=== PATIENT | male | born 1990 | race Caucasian/White ===

== ENCOUNTER 2017-05-12 23:57 | Emergency (ER) | payer BC, OTHER ==
[~2017-05-12] VITALS: Ht 177.8 cm; Wt 61.3 kg
[~2017-05-12 23:57] MED LIST: CEPH500C PO; MEDLIST
[2017-05-13 00:02] VITALS: TEMP 37.2; Ht 177.8 cm; Wt 61.3 kg
[2017-05-13 00:40] VITALS: BP 122/67; PULSE 82; O2SAT 97
--- NOTE | 2017-05-13 00:53 | EMERGENCY ROOM VISIT NOTE ---
ED Visit Note First contact with patient: 00:01 CHIEF COMPLAINT: Foot pain HISTORY OF PRESENT ILLNESS: This 27-year-old patient presents to the emergency department with mother complaining of swelling and pain in the left foot at rest and worse with weight bearing. The patient accidentally hit it on the door. The patient rates the pain as having and 5/10. The patient has taken nothing for relief of the pain. The patient is able to walk. No numbness or weakness. No ankle pain. There are no lacerations of the foot. The patient is able to move all of their toes and their ankle without pain. +previous fracture to this foot. Patient follows at the [facility] orthopedics REVIEW OF SYSTEMS: GENERAL: A 6 system review of systems was completed with positives and pertinent negatives in the HPI. ALLERGIES: None MEDICATIONS: None PMH: Orthopedic injuries SOCIAL HISTORY: no drug use PHYSICAL EXAM: Vital Signs: Reviewed Nurse's notes, vital signs stable. GENERAL : Pleasant male, in no acute distress, but appears in pain, well-developed, well -nourished. MUSCULOSKELATAL: There is no visual deformity of the left foot. There is no erythema no ecchymosis. There is no warmth. There is tenderness and swelling over the medial aspect of the left foot. There is no tenderness over the lateral or medial malleolus. No tenderness of the tib/fib. The range of motion of the foot is no limited secondary to pain. There is no tenderness over the plantar fascia. The skin is intact and there are no lacerations or puncture wounds. Dorsalis pedis pulse 2+. Capillary refill less than 2 seconds. EMERGENCY DEPARTMENT COURSE: I examined the patient. An X-ray of the left foot was reviewed by myself and my attending and reveals a fracture. The patient states he was able to ambulate and was comfortable doing this. He was advised if symptoms persist to follow-up with orthopedics or here in the ER sooner for severe pain, numbness, tingling, worsening signs or symptoms or as needed. The patient was discharged home in good condition. DIAGNOSIS: Left foot sprain TREATMENT: as below Current/Historical Medications No Active Prescriptions or Reported Meds Allergies Coded Allergies: No Known Allergies (Unverified , 05/13/17) Vital Signs Date Time Temp Pulse Resp B/P (MAP) Pulse Ox O2 Delivery O2 Flow Rate FiO2 05/13/17 00:02 37.2 104 16 141/80 99 Room Air Departure Information Impression Primary Impression: Sprain of left foot Dispostion Home / Self-Care Condition GOOD Prescriptions No Active Prescriptions or Reported Meds Forms HOME CARE DOCUMENTATION FORM, IMPORTANT VISIT INFORMATION Patient Instructions My [facility] Additional Instructions Ibuprofen(Motrin, Advil) may be used for fever or pain. Use 600mg every six hours as needed. Take with food. Avoid using more than 2400mg in a 24 hour period. Do not use 2400mg per day for more than three consecutive days without physician direction. Prolonged inappropriate use can lead to stomach upset or ulcers. This medication can be taken if you need to drive, work, or perform activities which may be dangerous when taking narcotic pain medication. (AND/OR) Acetaminophen(Tylenol) may be used for fever or pain. Use 1000mg every six hours as needed. Avoid using more than 3000mg in a 24 hour period. This medication can be taken if you need to drive, work, or perform activities which may be dangerous when taking narcotic pain medication. Ice compresses for 20 minutes at a time four times daily for 2-3 days. Rest and elevate your injury. Continue current medications. Return to the ER immediately for any numbness, tingling, severe pain, extreme swelling in the extremity or as needed. Call your Orthopedics in 3-5 day if symptoms persist to arrange follow up for your injury.
--- NOTE | 2017-05-13 06:38 | DIAGNOSTIC IMAGING REPORT ---
LEFT FOOT MIN 3 VIEWS ROUTINE CLINICAL HISTORY: left, pain 1/2 COMPARISON: None. DISCUSSION: The bones and joint spaces appear intact. There is no evidence of fracture, dislocation or bony disease. There is no evidence for soft tissue swelling. IMPRESSION: Negative study. Electronically signed by: Zoltan Guerrero M.D. 05/13/2017 6:36 AM Dictated Date/Time: 05/13/2017 6:35 AM
== END 2017-05-13 01:00 | disposition home or self-care (01) ==
LOC: C.EDB 23:58 → C.EDC 05-13 01:00
DX: S93.602A Unspecified sprain of left foot, initial encounter (principal); W22.8XXA Striking against or struck by other objects, initial encounter

== ENCOUNTER 2017-09-01 19:58 | Emergency (ER) | payer OTHER ==
[~2017-09-01] VITALS: Ht 177.8 cm; Wt 60.7 kg
[2017-09-01 20:01] VITALS: TEMP 37; Ht 177.8 cm; Wt 60.7 kg
--- NOTE | 2017-09-01 20:57 | DIAGNOSTIC IMAGING REPORT ---
L-SPINE MIN 4 VIEWS ROUTINE HISTORY: 27 years-old Male L lumbar back pain acute low back pain status post stretching injury COMPARISON: None available TECHNIQUE: 5 views of the lumbar spine FINDINGS: No acute fracture or dislocation. No evidence of spondylolysis or spondylolisthesis. No significant degenerative changes. Minimal anterior endplate wedging of L1 may be physiologic. Soft tissues are unremarkable. IMPRESSION: 1. No acute lumbar spine fracture or subluxation. 2. No significant degenerative changes. The above report was generated using voice recognition software. It may contain grammatical, syntax or spelling errors. Electronically signed by: Tin Magallanes M.D. 09/01/2017 8:56 PM Dictated Date/Time: 09/01/2017 8:52 PM
[2017-09-01] MEDS ORDERED: FLEXERIL HOME PACK 10 MG VIAL PO ONE (21:15)
[2017-09-01] MEDS ORDERED: CYCL10TA6 PO (21:17)
[2017-09-01 21:26] VITALS: BP 107/81; PULSE 82; O2SAT 97
--- NOTE | 2017-09-02 01:37 | EMERGENCY ROOM VISIT NOTE ---
ED Visit Note First contact with patient: 20:00 Chief Complaint: I hurt my lower back. History of Present Illness: Mr. Victoria is a 27-year-old white male who ambulates into the ED accompanied by his mother complaining of left sided lumbar back pain. Historically patient reports intermittently he has some mild back pain but has never had it evaluated. He denies any significant injuries or trauma to the back. Patient reports approximately one hour before he arrived in the emergency department he was stretching his lower back by bending forward, felt a popping sensation in the lower lumbar spine and developed an acute onset of moderate to severe pain. Currently he is complaining of sharp left-sided lumbar back pain in the area of L4-L5 and the sacroiliac joint. He rates his discomfort 7.5/10. His pain is nonradiating. His pain worsens with palpation in all movement of the lower back. He has not identified any alleviating factors related to the pain. He has not taken a medication for pain prior to arrival at the hospital. He denies any associated symptoms including fevers, chills, sweats, skin eruptions , skin color changes, flank pain, abdominal pain, nausea, vomiting, diarrhea, constipation, rectal bleeding, black/tarry stools, urinary symptoms, hematuria, genital paresthesias, bowel and bladder dysfunction, lower extremity weakness/ numbness/tingling. Review of Systems: As noted above in history of present illness. 8 body systems were reviewed and found to be negative as noted above. Past Medical History: Patient denies. Current Medications: Patient denies. Allergies to Medications: Patient denies. Social History: Patient is currently employed; he lives with his mother and feels safe in his home environment; he admits to tobacco and alcohol use. Physical Examination: Vital Signs: Date Time Temp Pulse Resp B/P (MAP) Pulse Ox O2 Delivery O2 Flow Rate FiO2 09/01/17 21:26 82 20 107/81 97 09/01/17 20:01 37.0 95 16 124/73 99 Room Air GENERAL: 27-year-old male in mild to moderate distress due to pain, nontoxic- appearing, afebrile and hemodynamically stable. NEUROLOGICAL: Awake, alert and oriented to person, place and time. Answering questions appropriately and following commands. Normal gait. Good hand eye coordination. SKIN: Warm, dry and pink. No soft tissue eruptions or trauma noted. BACK: No tenderness over the bony cervical and thoracic spine. No CVA tenderness. Mild to moderate tenderness in the left side of the L4-L5 area with palpable spasm but no bony deformity, bony crepitus, swelling, ecchymosis or step-offs. There was also mild tenderness in the sacroiliac joint area on the left without bony deformity, bony crepitus, swelling or ecchymosis. Negative straight leg raise test. Decreased range of motion in all movements of the lumbar spine with prominence in extension and left lateral bending. THORAX: Lungs sounds are clear to auscultation and equal bilaterally with symmetrical chest wall. ABDOMEN: Flat, soft and nontender. Positive bowel sounds in all quadrants. No guarding, rigidity or organomegaly. LOWER EXTREMITIES: Moves all extremities well on command and with purpose. All distal neurovascular statuses are intact and equal bilaterally. No calf tenderness or cords. 5/5 muscle strength in hip flexion, extension, abduction, abduction, internal and external rotation, knee flexion and extension, ankle plantar flexion and dorsiflexion and great toe flexion and extension. 2+ patellar and Achilles deep tendon reflexes intact and equal bilaterally. He was able to distinctly slight sensations to all dermatomes. ED Course: Patient is assessed as noted above. Patient's medication list was reviewed. Patient was offered pain medication and refused. Lumbar X-Rays: Were read by myself and the radiologist showing no acute lumbar spinal fracture or subluxation. No significant degenerative changes. Radiologist did note minimal anterior endplate wedging of L1. Patient was educated about today's findings and instructed on his treatment plan ; he verbalized understanding and agreement with this plan. Clinical Impression: Lumbar spine strain. Decision-Making: Initially in my differential I considered muscle strain, herniated disc, sacroiliitis, muscle spasm, cauda equina syndrome and other causes. Disposition: Patient discharged home in stable condition accompanied by his mother; prior to departure he was reassessed and subjectively reported he was feeling the same. Plan: Comfort measures including rest, ice or heat, alternating ibuprofen and acetaminophen, proper lifting and moving techniques were discussed with the patient. Patient was prescribed Flexeril 10 mg every 8 hours as needed for muscle spasm. Patient was signed off of work for 2 days. Patient was encouraged to follow-up with his PCP for recheck in 5-6 days if no better. Patient was encouraged return ED for worsening/uncontrolled pain, fevers, abdominal pain, rectal/genital paresthesias, bowel and bladder dysfunction, lower extremity weakness/numbness/tingling or any new/concerning symptoms.
== END 2017-09-01 21:28 | disposition home or self-care (01) ==
LOC: C.EDB 19:58 → C.EDD 21:28
DX: S39.012A Strain of muscle, fascia and tendon of lower back, initial encounter (principal); X58.XXXA Exposure to other specified factors, initial encounter